=== PATIENT | female | born 1985 | race Caucasian/White ===

== ENCOUNTER 2017-05-11 10:02 | Emergency (ER) | payer MEDICARE, MEDICAID ==
[~2017-05-11] VITALS: Ht 160 cm; Wt 110.0 kg
[~2017-05-11 10:02] MED LIST: ALBU18HF2 IH; ALBU18HF2 INH; ASPI162T; CIPR-230 PO; DEXT30SU5 PO; GEMF600T3 PO; HYDR-2563 PO; LAMO200T2 PO; LEVO25TA2 PO; METF500T7 PO; MYCOL30CR TP; NITR100C6 PO; NORCO10T PO; OLAN5TAB5 PO; PREN1TAB75 PO; RISP2TAB3 PO; RISP4TAB PO; SERT25TA PO
[2017-05-11] MEDS ORDERED: normal saline 1000ML IV soln IVB ONE (10:25)
[2017-05-11] MEDS ORDERED: iohexol 300mg/ml 100ml inj. ONE (11:26)
[2017-05-11 13:06] VITALS: BP 134/89
== END 2017-05-11 13:09 | disposition home or self-care (01) ==
LOC: ER 10:02
DX: S30.1XXA Contusion of abdominal wall, initial encounter (principal); K42.9 Umbilical hernia without obstruction or gangrene; E11.9 Type 2 diabetes mellitus without complications; J45.909 Unspecified asthma, uncomplicated; Z88.2 Allergy status to sulfonamides; Z88.0 Allergy status to penicillin; Z88.8 Allergy status to other drugs, medicaments and biological substances; X58.XXXA Exposure to other specified factors, initial encounter; Y93.89 Activity, other specified; Y92.89 Other specified places as the place of occurrence of the external cause; Y99.8 Other external cause status
CPT/HCPCS: 74177; 99284; J7030; Q9967

== ENCOUNTER 2017-07-08 16:31 | Emergency (ER) | payer MEDICARE, MEDICAID ==
[~2017-07-08] VITALS: Ht 160 cm; Wt 98.4 kg
[2017-07-08 17:09] LABS: BASOPHILS % (AUTO) 0.2 % (0-1); EOSINOPHILS # (AUTO) 0.5 X10'3 (0-0.9); EOSINOPHILS % (AUTO) 5.6 % (0-6); HEMOGLOBIN 13.5 g/dl (12.0-16.0); LYMPHOCYTES # (AUTO) 2.2 X10'3 (1.1-4.8); LYMPHOCYTES % (AUTO) 26.2 % (21-51); MEAN CORPUSCULAR HEMOGLOBIN 30.7 PG (27.0-31.0); MEAN CORPUSCULAR HGB CONC 33.8 % (33.0-36.5); MEAN CORPUSCULAR VOLUME 90.8 FL (78-98); MEAN PLATELET VOLUME 8.2 FL (7.4-10.4); MONOCYTES # (AUTO) 0.4 X10'3 (0-0.9); MONOCYTES % (AUTO) 4.5 % (2-12); NEUTROPHILS # (AUTO) 5.3 X10'3 (1.8-7.7); NEUTROPHILS % (AUTO) 63.5 % (42-75); PLATELET COUNT 270 X10'3 (140-440); RED CELL DISTRIBUTION WIDTH 14.3 % (11.5-14.5); WHITE BLOOD COUNT 8.4 X10'3 (4.5-11.0)
[2017-07-08 17:17] LABS: INR 0.9 INR; PROTHROMBIN TIME 9.8 SECONDS (9.0-12.0)
[2017-07-08 17:27] LABS: ALANINE AMINOTRANSFERASE 19 U/L (12-78); ALBUMIN 3.9 G/DL (3.4-5.0); ALBUMIN/GLOBULIN RATIO 1.1 (1.1-1.5); ALKALINE PHOSPHATASE 104 IU/L (46-116); ANION GAP 8 (8-16); ASPARTATE AMINO TRANSFERASE 17 U/L (10-37); BILIRUBIN,TOTAL 0.2 MG/DL (0.1-1.0); BLOOD UREA NITROGEN 13 MG/DL (7-18); BUN/CREATININE RATIO 10.4 (6.6-38.0); CALCIUM 9.2 MG/DL (8.5-10.1); CHLORIDE 108 MMOL/L (99-107); CREATININE 1.25 MG/DL (0.40-0.90); GLUCOSE 102 MG/DL (70-104); SODIUM 143 MMOL/L (135-145); TOTAL CARBON DIOXIDE 27.1 MMOL/L (24-32); TOTAL PROTEIN 7.4 G/DL (6.4-8.2); eGFR 50 ML/MIN
[2017-07-08] MEDS ORDERED: NYST15PO4 TOP (17:57)
[2017-07-08 18:06] VITALS: BP 145/89
[2017-07-08 18:36] LABS: CLARITY,URINE Cloudy (Clear); COLOR,URINE YELLOW (Yellow); GLUCOSE, URINE NEGATIVE (Neg); KETONES,URINE TRACE mg/dl (Neg); LEUKOCYTE ESTERASE ,URINE TRACE (Neg); NITRITES, URINE NEGATIVE (Neg); OCCULT BLOOD,URINE LARGE (Neg); PH,URINE 5.5 (4.8-8.0); PROTEIN,URINE 30 mg/dl (Neg); UA COLLECTION TYPE CLN CATCH MIDSTREAM; UROBILINOGEN,URINE 0.2 E.U/dL (0.2-1.0)
[2017-07-08 18:47] LABS: BACTERIA,URINE FEW /HPF (Neg); MUCUS STRANDS NONE SEEN /LPF (Neg); RBC,URINE TNTC /HPF (0-2); SQUAMOUS EPITHELIAL CELL,UR FEW /LPF (FEW); WBC,URINE 0-4 /HPF (0-4)
== END 2017-07-08 18:08 | disposition home or self-care (01) ==
LOC: ER 16:32
DX: N93.9 Abnormal uterine and vaginal bleeding, unspecified (principal); B37.2 Candidiasis of skin and nail; J45.909 Unspecified asthma, uncomplicated; E11.9 Type 2 diabetes mellitus without complications; Z88.8 Allergy status to other drugs, medicaments and biological substances; Z79.84 Long term (current) use of oral hypoglycemic drugs; Z79.899 Other long term (current) drug therapy
CPT/HCPCS: 36415; 80053; 81001; 85025; 85610; 87088; 99284

== ENCOUNTER 2018-01-16 16:31 | Emergency (ER) | payer MEDICARE, MEDICAID ==
[~2018-01-16] VITALS: Ht 160 cm; Wt 90.9 kg
[~2018-01-16 16:31] MED LIST changes: -GEMF600T3 PO; +GEMF600T4 PO; +NYST15PO4 TOP
[2018-01-16 16:49] VITALS: BP 161/100
[2018-01-16] MEDS ORDERED: IBUP-1984 PO (17:34)
== END 2018-01-16 17:53 | disposition home or self-care (01) ==
LOC: ER 16:32
DX: S09.90XA Unspecified injury of head, initial encounter (principal); M79.602 Pain in left arm; J45.909 Unspecified asthma, uncomplicated; E11.9 Type 2 diabetes mellitus without complications; Z88.1 Allergy status to other antibiotic agents; Z88.2 Allergy status to sulfonamides; Z79.899 Other long term (current) drug therapy; Z79.2 Long term (current) use of antibiotics; Z79.84 Long term (current) use of oral hypoglycemic drugs; Y08.89XA Assault by other specified means, initial encounter; Y93.89 Activity, other specified; Y92.89 Other specified places as the place of occurrence of the external cause; Y99.8 Other external cause status
CPT/HCPCS: 70450; 73090; 99284

== ENCOUNTER 2018-11-22 12:20 | Emergency (ER) | payer MEDICARE, MEDICAID ==
[~2018-11-22] VITALS: Ht 160 cm; Wt 102.3 kg
[~2018-11-22 12:20] MED LIST changes: -GEMF600T4 PO; +GEMF600T89 PO; +METF500T20 PO; -METF500T7 PO
[2018-11-22] MEDS ORDERED: AZIT250T PO (13:53)
[2018-11-22 14:04] VITALS: BP 136/85
== END 2018-11-22 14:05 | disposition home or self-care (01) ==
LOC: ER 12:20
DX: J02.9 Acute pharyngitis, unspecified (principal); R05 Cough; R11.10 Vomiting, unspecified; R09.3 Abnormal sputum; J45.909 Unspecified asthma, uncomplicated; E11.9 Type 2 diabetes mellitus without complications; F31.9 Bipolar disorder, unspecified; F12.90 Cannabis use, unspecified, uncomplicated; F17.200 Nicotine dependence, unspecified, uncomplicated; Z98.890 Other specified postprocedural states; Z88.1 Allergy status to other antibiotic agents; Z88.2 Allergy status to sulfonamides; Z88.8 Allergy status to other drugs, medicaments and biological substances; Z79.84 Long term (current) use of oral hypoglycemic drugs; Z79.899 Other long term (current) drug therapy
CPT/HCPCS: 71045; 99283

== ENCOUNTER 2019-03-08 09:44 | Outpatient (CLI) | payer MEDICARE, MEDICAID | END 2019-03-08 23:59 | disposition home or self-care (01) | LOC: RAD 09:44 | PROVIDERS: ATTEND Physician Assistant Medical | DX: R56.9 Unspecified convulsions (principal) | CPT/HCPCS: 95816 ==

== ENCOUNTER 2019-08-19 15:15 | Emergency (ER) | payer MEDICARE, MEDICAID ==
[~2019-08-19] VITALS: Ht 157.5 cm; Wt 99.0 kg
[~2019-08-19 15:15] MED LIST changes: +METF-900 PO; -METF500T20 PO
[2019-08-19 15:40] VITALS: BP 142/97
[2019-08-19] MEDS ORDERED: ketorolac trometh inj. 60 MG/2 ML VIAL IM ONE (16:35)
== END 2019-08-19 17:24 | disposition home or self-care (01) ==
LOC: ER 15:16
DX: M25.511 Pain in right shoulder (principal); J45.909 Unspecified asthma, uncomplicated; E11.9 Type 2 diabetes mellitus without complications; F31.9 Bipolar disorder, unspecified; F12.90 Cannabis use, unspecified, uncomplicated; Z98.890 Other specified postprocedural states; Z88.8 Allergy status to other drugs, medicaments and biological substances; Z79.899 Other long term (current) drug therapy
CPT/HCPCS: 73030; 96372; 99283; J1885

== ENCOUNTER 2019-08-22 23:13 | Emergency (ER) | payer MEDICARE, MEDICAID ==
[~2019-08-22] VITALS: Ht 158.8 cm; Wt 97.7 kg
[2019-08-22 23:16] VITALS: BP 162/93
[2019-08-22] MEDS ORDERED: IBUP-1986 PO (23:44)
[2019-08-22] MEDS ORDERED: ketorolac trometh. 30mg/ml inj. IM ONE (23:45)
== END 2019-08-23 00:27 | disposition home or self-care (01) ==
LOC: ER 23:14
DX: M25.511 Pain in right shoulder (principal); E11.9 Type 2 diabetes mellitus without complications; J45.909 Unspecified asthma, uncomplicated; F31.9 Bipolar disorder, unspecified; F12.90 Cannabis use, unspecified, uncomplicated; Z88.8 Allergy status to other drugs, medicaments and biological substances; Z79.899 Other long term (current) drug therapy
CPT/HCPCS: 96372; 99283; J1885

== ENCOUNTER 2019-11-04 15:27 | Emergency (ER) | payer MEDICARE, MEDICAID ==
[~2019-11-04] VITALS: Ht 160 cm; Wt 102.3 kg
[~2019-11-04 15:27] MED LIST changes: +IBUP-1986 PO
[2019-11-04 15:35] VITALS: BP 140/91
[2019-11-04] MEDS ORDERED: ketorolac tromethamine 15mg/ml inj. IM ONE (15:55)
[2019-11-04] MEDS ORDERED: ALBU8.5H8 INH (15:56)
[2019-11-04] MEDS ORDERED: IBUP-1985 PO (15:56)
== END 2019-11-04 16:12 | disposition home or self-care (01) ==
LOC: ER 15:28
DX: K08.89 Other specified disorders of teeth and supporting structures (principal); R05 Cough; J45.909 Unspecified asthma, uncomplicated; E11.9 Type 2 diabetes mellitus without complications; F31.9 Bipolar disorder, unspecified; F12.90 Cannabis use, unspecified, uncomplicated; Z88.0 Allergy status to penicillin; Z79.899 Other long term (current) drug therapy
CPT/HCPCS: 96372; 99283; J1885

== ENCOUNTER 2019-12-17 17:32 | Emergency (ER) | payer MEDICARE, MEDICAID ==
[~2019-12-17] VITALS: Ht 157.5 cm; Wt 109.0 kg
[~2019-12-17 17:32] MED LIST changes: +ALBU8.5H8 INH; +IBUP-1985 PO; -RISP2TAB3 PO; +RISP2TAB85 PO
[2019-12-17] MEDS ORDERED: normal saline 1000ML IV soln IVB ONE (19:00)
[2019-12-17] MEDS ORDERED: aspirin 81mg tab.chew PO ONE (19:00)
[2019-12-17] MEDS ORDERED: pantoprazole 40 MG vial IV ONE (19:00)
[2019-12-17 19:25] LABS: HEMATOCRIT 37.9 % (35.0-45.0); HEMOGLOBIN 12.8 g/dl (12.0-16.0); MEAN CORPUSCULAR HEMOGLOBIN 31.4 PG (27.0-31.0); MEAN CORPUSCULAR HGB CONC 33.7 g/dL (33.0-36.5); MEAN CORPUSCULAR VOLUME 93.2 FL (78-98); RED BLOOD COUNT 4.07 X10'6 (4.20-5.60); WHITE BLOOD COUNT 7.7 X10'3 (4.5-11.0)
[2019-12-17 19:26] LABS: BASOPHILS % (AUTO) 0.3 % (0-1); EOSINOPHILS # (AUTO) 0.2 X10'3 (0-0.9); EOSINOPHILS % (AUTO) 2.1 % (0-6); LYMPHOCYTES # (AUTO) 1.9 X10'3 (1.1-4.8); LYMPHOCYTES % (AUTO) 24.7 % (21-51); MEAN PLATELET VOLUME 7.5 FL (7.4-10.4); MONOCYTES # (AUTO) 0.3 X10'3 (0-0.9); MONOCYTES % (AUTO) 3.8 % (2-12); NEUTROPHILS # (AUTO) 5.3 X10'3 (1.8-7.7); NEUTROPHILS % (AUTO) 69.1 % (42-75); PLATELET COUNT 303 X10'3 (140-440)
[2019-12-17 19:43] LABS: ALANINE AMINOTRANSFERASE 21 U/L (12-78); ALBUMIN 3.7 G/DL (3.4-5.0); ALBUMIN/GLOBULIN RATIO 1.1 (1.1-1.5); ALKALINE PHOSPHATASE 104 IU/L (46-116); ANION GAP 9 (8-16); ASPARTATE AMINO TRANSFERASE 12 U/L (10-37); BILIRUBIN,TOTAL 0.2 MG/DL (0.1-1.0); BLOOD UREA NITROGEN 14 MG/DL (7-18); BUN/CREATININE RATIO 16.1 (6.6-38.0); CALCIUM 9.4 MG/DL (8.5-10.1); CHLORIDE 104 MMOL/L (99-107); CREATININE 0.87 MG/DL (0.40-0.90); GLUCOSE 90 MG/DL (70-104); POTASSIUM 3.7 MMOL/L (3.5-5.1); SODIUM 139 MMOL/L (135-145); TOTAL CARBON DIOXIDE 26.1 MMOL/L (24-32); TOTAL PROTEIN 7.2 G/DL (6.4-8.2); eGFR 75 ML/MIN
[2019-12-17 20:08] VITALS: BP 138/88
== END 2019-12-17 20:09 | disposition home or self-care (01) ==
LOC: ER 17:33
DX: R07.89 Other chest pain (principal); R10.13 Epigastric pain; I10 Essential (primary) hypertension; J45.909 Unspecified asthma, uncomplicated; E11.9 Type 2 diabetes mellitus without complications; M19.90 Unspecified osteoarthritis, unspecified site; G89.29 Other chronic pain; M79.7 Fibromyalgia; F17.200 Nicotine dependence, unspecified, uncomplicated; F12.90 Cannabis use, unspecified, uncomplicated; Z98.890 Other specified postprocedural states; Z79.899 Other long term (current) drug therapy; Z88.1 Allergy status to other antibiotic agents; Z88.8 Allergy status to other drugs, medicaments and biological substances
CPT/HCPCS: 36415; 71046; 80053; 84484; 85025; 93005; 96374; 99285; C9113; J7030

== ENCOUNTER 2020-02-02 18:04 | Emergency (ER) | payer MEDICARE, MEDICAID ==
[~2020-02-02] VITALS: Ht 160 cm; Wt 104.3 kg
[2020-02-02] MEDS ORDERED: ketorolac tromethamine 15mg/ml inj. IV ONE (19:50)
[2020-02-02 20:17] VITALS: BP 130/90
== END 2020-02-02 20:20 | disposition home or self-care (01) ==
LOC: ER 18:05
DX: M25.561 Pain in right knee (principal); I10 Essential (primary) hypertension; E11.9 Type 2 diabetes mellitus without complications; G89.29 Other chronic pain; M54.9 Dorsalgia, unspecified; F31.9 Bipolar disorder, unspecified; F12.10 Cannabis abuse, uncomplicated; Z88.1 Allergy status to other antibiotic agents; Z87.448 Personal history of other diseases of urinary system; Z88.2 Allergy status to sulfonamides; Z88.8 Allergy status to other drugs, medicaments and biological substances; X58.XXXA Exposure to other specified factors, initial encounter; Y93.89 Activity, other specified; Y92.89 Other specified places as the place of occurrence of the external cause; Y99.8 Other external cause status
CPT/HCPCS: 29505; 73564; 96374; 99283; J1885

== ENCOUNTER 2020-07-03 14:00 | Emergency (ER) | payer MEDICARE, MEDICAID ==
[~2020-07-03] VITALS: Ht 157.5 cm; Wt 111.0 kg
[~2020-07-03 14:00] MED LIST changes: +CIPR-202 PO; -CIPR-230 PO
[2020-07-03 14:13] VITALS: BP 140/98
[2020-07-03] MEDS ORDERED: CYCL-1 PO (15:44)
== END 2020-07-03 15:52 | disposition home or self-care (01) ==
LOC: ER 14:01
DX: S39.012A Strain of muscle, fascia and tendon of lower back, initial encounter (principal); M62.838 Other muscle spasm; I10 Essential (primary) hypertension; J45.909 Unspecified asthma, uncomplicated; E11.9 Type 2 diabetes mellitus without complications; M19.90 Unspecified osteoarthritis, unspecified site; G89.29 Other chronic pain; F41.9 Anxiety disorder, unspecified; F31.9 Bipolar disorder, unspecified; F12.90 Cannabis use, unspecified, uncomplicated; Z87.440 Personal history of urinary (tract) infections; Z98.890 Other specified postprocedural states; Z88.1 Allergy status to other antibiotic agents; Z88.8 Allergy status to other drugs, medicaments and biological substances; Z79.2 Long term (current) use of antibiotics; Z79.899 Other long term (current) drug therapy; X58.XXXA Exposure to other specified factors, initial encounter; Y93.89 Activity, other specified; Y92.89 Other specified places as the place of occurrence of the external cause; Y99.8 Other external cause status
CPT/HCPCS: 99283

== ENCOUNTER 2020-08-23 17:37 | Emergency (ER) | payer MEDICARE, MEDICAID ==
[~2020-08-23] VITALS: Ht 157.5 cm; Wt 107.0 kg
[~2020-08-23 17:37] MED LIST changes: +CYCL-1 PO
[2020-08-23 18:33] LABS: URINE HCG NEGATIVE (NEG)
[2020-08-23 18:41] LABS: CLARITY,URINE CLOUDY (Clear); COLOR,URINE YELLOW (Yellow); GLUCOSE, URINE NEGATIVE (Neg); KETONES,URINE TRACE mg/dl (Neg); LEUKOCYTE ESTERASE ,URINE TRACE (Neg); NITRITES, URINE NEGATIVE (Neg); OCCULT BLOOD,URINE NEGATIVE (Neg); PH,URINE 5.5 (4.8-8.0); PROTEIN,URINE TRACE mg/dl (Neg)
[2020-08-23 18:44] LABS: ALANINE AMINOTRANSFERASE 17 U/L (12-78); ALBUMIN 3.8 G/DL (3.4-5.0); ALBUMIN/GLOBULIN RATIO 0.9 (1.1-1.5); ALKALINE PHOSPHATASE 125 IU/L (46-116); AMYLASE 37 U/L (25-115); ANION GAP 11 (8-16); ASPARTATE AMINO TRANSFERASE 9 U/L (10-37); BILIRUBIN,TOTAL 0.4 MG/DL (0.1-1.0); BLOOD UREA NITROGEN 14 MG/DL (7-18); CHLORIDE 106 MMOL/L (99-107); CREATININE 1.08 MG/DL (0.40-0.90); GLUCOSE 113 MG/DL (70-104); LIPASE 93 U/L (73-393); POTASSIUM 3.3 MMOL/L (3.5-5.1); SODIUM 141 MMOL/L (135-145); TOTAL CARBON DIOXIDE 24.2 MMOL/L (24-32); TOTAL PROTEIN 7.9 G/DL (6.4-8.2); eGFR 58 ML/MIN
[2020-08-23 18:51] LABS: BASOPHILS % (AUTO) 0.1 % (0-1); EOSINOPHILS # (AUTO) 0.2 X10'3 (0-0.9); EOSINOPHILS % (AUTO) 2.1 % (0-6); HEMATOCRIT 41.8 % (35.0-45.0); HEMOGLOBIN 14.5 g/dl (12.0-16.0); LYMPHOCYTES # (AUTO) 1.8 X10'3 (1.1-4.8); LYMPHOCYTES % (AUTO) 19.3 % (21-51); MEAN CORPUSCULAR HEMOGLOBIN 30.5 PG (27.0-31.0); MEAN CORPUSCULAR HGB CONC 34.7 g/dL (33.0-36.5); MEAN CORPUSCULAR VOLUME 87.9 FL (78-98); MEAN PLATELET VOLUME 8.3 FL (7.4-10.4); MONOCYTES # (AUTO) 0.6 X10'3 (0-0.9); MONOCYTES % (AUTO) 6.2 % (2-12); NEUTROPHILS # (AUTO) 6.7 X10'3 (1.8-7.7); NEUTROPHILS % (AUTO) 72.3 % (42-75); PLATELET COUNT 311 X10'3 (140-440); RED BLOOD COUNT 4.76 X10'6 (4.20-5.60); RED CELL DISTRIBUTION WIDTH 14.6 % (11.5-14.5); WHITE BLOOD COUNT 9.2 X10'3 (4.5-11.0)
[2020-08-23 18:54] LABS: UA COLLECTION TYPE CLN CATCH MIDSTREAM
[2020-08-23 19:01] LABS: BACTERIA,URINE 4+ /HPF (Neg); RBC,URINE 0-2 /HPF (0-2)
[2020-08-23 19:02] LABS: SQUAMOUS EPITHELIAL CELL,UR MANY /LPF (FEW)
[2020-08-23 19:03] LABS: MUCUS STRANDS MODERATE /LPF (Neg); WBC CLUMPS,URINE MODERATE /HPF (NEGATIVE)
[2020-08-23] MEDS ORDERED: morphine 4 MG/ML inj SYRINge IV ONE (19:30)
[2020-08-23] MEDS ORDERED: ondansetron/PF 4mg/2ml inj IV ONE (19:30)
[2020-08-23] MEDS ORDERED: iohexol 300mg/ml 100ml inj. ONE (19:52)
[2020-08-23] MEDS ORDERED: CEPH250T PO (20:29)
[2020-08-23 20:51] VITALS: BP 145/105
== END 2020-08-23 20:53 | disposition home or self-care (01) ==
LOC: ER 17:39
DX: N39.0 Urinary tract infection, site not specified (principal); I10 Essential (primary) hypertension; J45.909 Unspecified asthma, uncomplicated; E11.9 Type 2 diabetes mellitus without complications; M19.90 Unspecified osteoarthritis, unspecified site; G89.29 Other chronic pain; F12.90 Cannabis use, unspecified, uncomplicated; Z88.1 Allergy status to other antibiotic agents; Z88.2 Allergy status to sulfonamides; Z88.8 Allergy status to other drugs, medicaments and biological substances; Z79.2 Long term (current) use of antibiotics; Z79.899 Other long term (current) drug therapy; Z87.440 Personal history of urinary (tract) infections; Z98.891 History of uterine scar from previous surgery
CPT/HCPCS: 36415; 74176; 80053; 81001; 81025; 82150; 83690; 85025; 96374; 96375; 99284; J2270; J2405; 99285; Q9967

== ENCOUNTER 2020-10-31 14:07 | Emergency (ER) | payer MEDICARE, MEDICAID ==
[~2020-10-31] VITALS: Ht 157.5 cm; Wt 109.3 kg
[~2020-10-31 14:07] MED LIST changes: +ALBU8.5H17 INH; -ALBU8.5H8 INH
[2020-10-31 14:19] VITALS: BP 121/74
--- NOTE | 2020-10-31 15:54 | NUR ---
Pt c/o n/v, breast pain, low back pain, and difficult to urinated. She not able to eat but is able to keep water down.
--- NOTE | 2020-10-31 16:00 | NUR ---
Pt is unable to void at this time.
[2020-10-31] MEDS ORDERED: ONDA4TAB6 PO (16:50)
[2020-10-31 17:00] LABS: HCG SERUM QL NEGATIVE
[2020-10-31 17:00] LABS: CLARITY,URINE CLEAR (Clear); COLOR,URINE YELLOW (Yellow); UA COLLECTION TYPE CLN CATCH MIDSTREAM; URINE HCG NEGATIVE (NEG)
[2020-10-31 17:01] LABS: GLUCOSE, URINE NEGATIVE (Neg); KETONES,URINE NEGATIVE (Neg); LEUKOCYTE ESTERASE ,URINE TRACE (Neg); NITRITES, URINE NEGATIVE (Neg); OCCULT BLOOD,URINE LARGE (Neg); PROTEIN,URINE NEGATIVE (Neg); UROBILINOGEN,URINE 0.2 E.U/dL (0.2-1.0)
[2020-10-31 17:11] LABS: AMORPHOUS URATES 1+; BACTERIA,URINE FEW /HPF (Neg); MUCUS STRANDS FEW /LPF (Neg); RBC,URINE 0-2 /HPF (0-2); SQUAMOUS EPITHELIAL CELL,UR MANY /LPF (FEW); WBC,URINE 0-4 /HPF (0-4)
== END 2020-10-31 17:20 | disposition home or self-care (01) ==
LOC: ER 14:08
DX: R11.2 Nausea with vomiting, unspecified (principal); I10 Essential (primary) hypertension; J45.909 Unspecified asthma, uncomplicated; M19.90 Unspecified osteoarthritis, unspecified site; G89.29 Other chronic pain; M79.7 Fibromyalgia; Z87.440 Personal history of urinary (tract) infections; F12.90 Cannabis use, unspecified, uncomplicated; Z98.891 History of uterine scar from previous surgery; Z88.1 Allergy status to other antibiotic agents; Z88.2 Allergy status to sulfonamides; Z91.040 Latex allergy status; Z88.8 Allergy status to other drugs, medicaments and biological substances; Z79.899 Other long term (current) drug therapy; Z79.2 Long term (current) use of antibiotics; Z79.82 Long term (current) use of aspirin
CPT/HCPCS: 36415; 81001; 81025; 84703; 99283

== ENCOUNTER 2021-03-29 14:49 | Emergency (ER) | payer MEDICARE, MEDICAID ==
[~2021-03-29] VITALS: Ht 157.5 cm; Wt 109.1 kg
[~2021-03-29 14:49] MED LIST changes: +ONDA4TAB6 PO
[2021-03-29 14:54] VITALS: BP 143/101
[2021-03-29] MEDS ORDERED: CYCL-1 PO (14:57)
== END 2021-03-29 15:32 | disposition home or self-care (01) ==
LOC: ER 14:50
DX: S39.012A Strain of muscle, fascia and tendon of lower back, initial encounter (principal); M62.838 Other muscle spasm; I10 Essential (primary) hypertension; J45.909 Unspecified asthma, uncomplicated; E11.9 Type 2 diabetes mellitus without complications; M19.90 Unspecified osteoarthritis, unspecified site; G89.29 Other chronic pain; M79.7 Fibromyalgia; F12.90 Cannabis use, unspecified, uncomplicated; Z87.440 Personal history of urinary (tract) infections; Z98.891 History of uterine scar from previous surgery; Z88.1 Allergy status to other antibiotic agents; Z88.2 Allergy status to sulfonamides; Z88.8 Allergy status to other drugs, medicaments and biological substances; Z79.899 Other long term (current) drug therapy; X50.3XXA Overexertion from repetitive movements, initial encounter; Y93.89 Activity, other specified; Y92.89 Other specified places as the place of occurrence of the external cause; Y99.8 Other external cause status
CPT/HCPCS: 99283

== ENCOUNTER 2021-05-26 14:08 | Emergency (ER) | payer MEDICARE, MEDICAID ==
[~2021-05-26] VITALS: Ht 157.5 cm; Wt 100.0 kg
[2021-05-26 14:19] VITALS: BP 158/78
--- NOTE | 2021-05-26 14:25 | NUR ---
agnes jones in triage.
[2021-05-26] MEDS ORDERED: ibuprofen tablet 400 MG TABLET PO ONE (14:30)
[2021-05-26] MEDS ORDERED: acetaminophen 325mg tablet PO ONE (14:30)
[2021-05-26 15:18] LABS: URINE HCG NEGATIVE (NEG)
[2021-05-26] MEDS ORDERED: SUMAtriptan 5 mg Nasal Spray NS ONE (15:25)
[2021-05-26] MEDS ORDERED: IBUP-1985 PO (15:33)
[2021-05-26] MEDS ORDERED: SUMAtriptan succ. 6 MG/0.5ml vial SQ ONE (15:35)
== END 2021-05-26 15:50 | disposition home or self-care (01) ==
LOC: ER 14:09
DX: R51.9 Headache, unspecified (principal); I10 Essential (primary) hypertension; J45.909 Unspecified asthma, uncomplicated; E11.9 Type 2 diabetes mellitus without complications; M19.90 Unspecified osteoarthritis, unspecified site; G89.29 Other chronic pain; F41.9 Anxiety disorder, unspecified; F31.9 Bipolar disorder, unspecified; F12.90 Cannabis use, unspecified, uncomplicated; Z87.440 Personal history of urinary (tract) infections; Z98.890 Other specified postprocedural states; Z88.1 Allergy status to other antibiotic agents; Z88.8 Allergy status to other drugs, medicaments and biological substances; Z91.040 Latex allergy status; Z79.2 Long term (current) use of antibiotics; Z79.899 Other long term (current) drug therapy
CPT/HCPCS: 81025; 96372; 99283; J3030

== ENCOUNTER 2021-08-18 15:58 | Emergency (ER) | payer MEDICARE, MEDICAID ==
[~2021-08-18] VITALS: Ht 157.5 cm; Wt 104.1 kg
[2021-08-18 16:18] VITALS: BP 126/93
[2021-08-18] MEDS ORDERED: ketorolac tromethamine 15mg/ml inj. IM ONE (17:25)
== END 2021-08-18 19:03 | disposition home or self-care (01) ==
LOC: ER 15:59
DX: M77.9 Enthesopathy, unspecified (principal); M79.641 Pain in right hand; I10 Essential (primary) hypertension; J45.909 Unspecified asthma, uncomplicated; E11.9 Type 2 diabetes mellitus without complications; G89.29 Other chronic pain; M79.7 Fibromyalgia; F41.9 Anxiety disorder, unspecified; F31.9 Bipolar disorder, unspecified; F12.90 Cannabis use, unspecified, uncomplicated; Z98.890 Other specified postprocedural states; Z88.1 Allergy status to other antibiotic agents; Z91.040 Latex allergy status; Z88.8 Allergy status to other drugs, medicaments and biological substances; Z79.899 Other long term (current) drug therapy
CPT/HCPCS: 29125; 73130; 96372; 99283; J1885

== ENCOUNTER 2022-10-19 08:39 | Emergency (ER) | payer MEDICARE, MEDICAID ==
[~2022-10-19] VITALS: Ht 157.5 cm; Wt 95.9 kg
[~2022-10-19 08:39] MED LIST changes: -MYCOL30CR TP; +NYST30CR35 TP
[2022-10-19 08:53] VITALS: BP 138/69; PULSE 60; RESP 18; TEMP 98.3; O2SAT 100
[2022-10-19] MEDS ORDERED: ketorolac trometh inj. 60 MG/2 ML VIAL IM ONE (09:45)
[2022-10-19] MEDS ORDERED: NAPR-1154 PO (09:56)
== END 2022-10-19 10:26 | disposition home or self-care (01) ==
LOC: ER 08:39
DX: S63.91XA Sprain of unspecified part of right wrist and hand, initial encounter (principal); E11.9 Type 2 diabetes mellitus without complications; I10 Essential (primary) hypertension; G89.29 Other chronic pain; F31.9 Bipolar disorder, unspecified; F12.10 Cannabis abuse, uncomplicated; W18.39XA Other fall on same level, initial encounter; Y92.89 Other specified places as the place of occurrence of the external cause; Y93.89 Activity, other specified; Y99.8 Other external cause status
CPT/HCPCS: 73130; 96372; 99284; J1885

== ENCOUNTER 2023-02-17 20:37 | Emergency (ER) | payer MEDICARE, MEDICAID ==
[~2023-02-17] VITALS: Ht 157.5 cm; Wt 87.0 kg
[~2023-02-17 20:37] MED LIST changes: +NAPR-1154 PO
[2023-02-17 20:45] VITALS: BP 130/93; PULSE 70; RESP 16; TEMP 98.2; O2SAT 97
== END 2023-02-17 21:25 | disposition home or self-care (01) ==
LOC: ER 20:37
DX: S00.83XA Contusion of other part of head, initial encounter (principal); G89.29 Other chronic pain; M54.9 Dorsalgia, unspecified; J45.909 Unspecified asthma, uncomplicated; F31.9 Bipolar disorder, unspecified; X58.XXXA Exposure to other specified factors, initial encounter; Y93.89 Activity, other specified; Y92.89 Other specified places as the place of occurrence of the external cause; Y99.8 Other external cause status
CPT/HCPCS: 29125; 73130; 99283

== ENCOUNTER 2023-06-07 08:26 | Emergency (ER) | payer MEDICARE, MEDICAID ==
[~2023-06-07] VITALS: Ht 157.5 cm; Wt 93.3 kg
[~2023-06-07 08:26] MED LIST changes: +RISP-32 PO; -RISP2TAB85 PO
[2023-06-07 08:36] VITALS: BP 119/83; PULSE 69; RESP 18; TEMP 97.8; O2SAT 98
== END 2023-06-07 09:31 | disposition home or self-care (01) ==
LOC: ER 08:27
DX: S60.221A Contusion of right hand, initial encounter (principal); I10 Essential (primary) hypertension; J45.909 Unspecified asthma, uncomplicated; E11.9 Type 2 diabetes mellitus without complications; M19.90 Unspecified osteoarthritis, unspecified site; G89.29 Other chronic pain; M54.9 Dorsalgia, unspecified; F41.9 Anxiety disorder, unspecified; F31.9 Bipolar disorder, unspecified; F12.90 Cannabis use, unspecified, uncomplicated; Z88.2 Allergy status to sulfonamides; Z91.040 Latex allergy status; Z88.8 Allergy status to other drugs, medicaments and biological substances; Z88.1 Allergy status to other antibiotic agents; X58.XXXA Exposure to other specified factors, initial encounter; Y93.89 Activity, other specified; Y92.89 Other specified places as the place of occurrence of the external cause; Y99.8 Other external cause status
CPT/HCPCS: 73130; 99283